=== PATIENT | female | born 1955 | race Caucasian/White ===

== ENCOUNTER 2021-10-07 11:38 | Observation (INO) | payer MEDICARE ==
[2021-10-07 12:10] LABS: #Basophils 0.3 10x3/uL (0.0-0.2); #Eosinphils 0.6 10x3/uL (0.0-0.5); #Monocytes 1.4 10x3/uL (0.0-1.1); #Neutrophils 8.8 10x3/uL (1.5-8.4); %Basophils 1.7 % (0.0-2.0); %Eosinophils 3.8 % (0.0-6.0); %Lymphocytes 30.6 % (18.0-47.0); %Monocytes 8.6 % (0.0-10.0); %Neutrophils 54.6 % (40.0-75.0); Hemoglobin 16.8 g/dL (12.0-15.5); Mean Corpuscular HGB CONC 35.1 g/dL (32.0-36.0); Mean Corpuscular Hemoglobin 31.2 pg (27.0-33.0); Mean Platelet Volume 10.1 fl (7.4-10.4); Platelet Count 415 10x3/uL (150-450); RBC Distribution Width 13.6 % (11.5-14.5); Red Blood Cell (RBC) Count 5.38 10x6/uL (3.90-5.03)
[2021-10-07 12:19] LABS: Chloride 106 mmol/L (98-107); Potassium 4.5 mmol/L (3.5-5.1); Sodium 138 mmol/L (136-145)
[2021-10-07 12:20] LABS: ALT (SGPT) 38 U/L (8-55); AST (SGOT) 36 U/L (5-34); Albumin 4.6 g/dL (3.4-4.8); Alkaline Phosphatase 79 U/L (40-110); Anion Gap 19 mmol/L (10-20); BUN (Urea Nitrogen) 20 mg/dL (9.8-20.1); Bilirubin, Total 0.7 mg/dL (0.2-1.2); Calc. Creatinine Clearance 0 mL/min (70-130); Calcium 9.9 mg/dL (7.8-10.44); Carbon Dioxide 18 mmol/L (23-31); Estimated GFR 43; Globulin 3.9 g/dL (2.4-3.5); Glucose 117 mg/dL (80-115); Protein, Total 8.5 g/dL (5.8-8.1)
[2021-10-07] MEDS ORDERED: Enoxaparin Sodium 60 MG/0.6 ML SYRINGE ONE (13:42)
[2021-10-07 13:49] LABS: SARS-CoV-2 NAA Rapid Test Not Detected (NotDetected)
[2021-10-07] MEDS ORDERED: Acetaminophen 325 MG TAB PO PRN (14:01)
[2021-10-07 15:13] LABS: Troponin I Less than 0.010 ng/mL (< 0.028)
[2021-10-07 15:37] LABS: Bilirubin Neg (Negative); Blood, Urine 25 (Negative); Clarity Slightly Cloudy (Clear); Glucose, Urine (Dipstick) Normal (Negative); Ketone, Urine Negative (Negative); Leukocyte Negative (Negative); Nitrite Negative (Negative); Protein, Urine (Dipstick) 30 mg/dl (Neg-Trace); Specific Gravity, Urine 1.025 (1.002-1.036); Urobilinogen Normal mg/dL (Less than 2)
[2021-10-07 15:56] LABS: Bacteria/HPF 2+ HPF (None Seen); Mucous/LPF 1+ LPF (<2+); WBC/HPF 0-3 HPF (0-3)
[2021-10-07 19:25] LABS: Troponin I Less than 0.010 ng/mL (< 0.028)
[2021-10-07] MEDS ORDERED: traZODone HCl 50 MG TAB PO SCH (22:30)
[2021-10-08 05:04] LABS: Hemoglobin 14.3 g/dL (12.0-15.5); Mean Corpuscular Hemoglobin 31.5 pg (27.0-33.0); Mean Corpuscular Volume 90.1 fl (81.6-98.3); Mean Platelet Volume 10.4 fl (7.4-10.4); RBC Distribution Width 13.8 % (11.5-14.5); Red Blood Cell (RBC) Count 4.54 10x6/uL (3.90-5.03); White Blood Cell (WBC) Count 10.9 10x3/uL (3.5-10.5)
[2021-10-08 05:05] LABS: Anion Gap 13 mmol/L (10-20); BUN (Urea Nitrogen) 20 mg/dL (9.8-20.1); Calc. Creatinine Clearance 65 mL/min (70-130); Calcium 9.1 mg/dL (7.8-10.44); Carbon Dioxide 21 mmol/L (23-31); Chloride 106 mmol/L (98-107); Estimated GFR 56; Glucose 129 mg/dL (80-115); Potassium 3.6 mmol/L (3.5-5.1); Sodium 136 mmol/L (136-145)
[2021-10-08 05:06] LABS: MDiff Complete? YES; Platelet Count 294 10x3/uL (150-450)
[2021-10-08 05:10] LABS: Band 2 % (5-11); Eosinophils 2 % (0-10); Lymphocytes 34 % (21-51); Monocytes 5 % (0-10); Myelocyte 1 % (0-0); Neutrophil 47 % (42-75); Reactive Lymphocytes 9 % (0-10)
[2021-10-08 05:11] LABS: Platelet Morphology Comment Appears Adequate; RBC Morphology Normal
[2021-10-08] MEDS ORDERED: Nitroglycerin 0.4 MG TAB (25 Tab Bottle) SL PRN (11:29)
[2021-10-08] MEDS ORDERED: Pepto Bismol Chew TAB PO PRN (11:29)
[2021-10-08] MEDS: Aspirin 81 mg Enteric Coated Tablet PO SCH ×2 (12:44→13:00)
[2021-10-08] MEDS ORDERED: Ventolin HFA Inhaler 60 PUFF INHALER INH PRN (14:32)
[2021-10-08] MEDS ORDERED: Lorazepam 1 MG TAB PO SCH ×2 (15:45→22:00)
[2021-10-08] MEDS: Metoprolol Tartrate 25 MG TAB PO SCH (20:33)
[2021-10-08] MEDS: Lorazepam 1 MG TAB PO SCH (20:33)
[2021-10-08] MEDS ORDERED: traZODone HCl 50 MG TAB PO SCH (21:00)
[2021-10-08] MEDS ORDERED: Atorvastatin Calcium 20 MG TAB PO SCH (21:00)
[2021-10-09 03:26] LABS: #Basophils 0.1 10x3/uL (0.0-0.2); #Eosinphils 0.6 10x3/uL (0.0-0.5); #Monocytes 0.9 10x3/uL (0.0-1.1); #Neutrophils 5.5 10x3/uL (1.5-8.4); %Basophils 1.1 % (0.0-2.0); %Eosinophils 4.7 % (0.0-6.0); %Lymphocytes 38.1 % (18.0-47.0); %Monocytes 7.9 % (0.0-10.0); %Neutrophils 47.8 % (40.0-75.0); Hemoglobin 14.4 g/dL (12.0-15.5); Mean Corpuscular HGB CONC 34.6 g/dL (32.0-36.0); Mean Corpuscular Hemoglobin 31.4 pg (27.0-33.0); Mean Corpuscular Volume 90.6 fl (81.6-98.3); Platelet Count 293 10x3/uL (150-450); RBC Distribution Width 13.6 % (11.5-14.5); Red Blood Cell (RBC) Count 4.59 10x6/uL (3.90-5.03); White Blood Cell (WBC) Count 11.6 10x3/uL (3.5-10.5)
[2021-10-09 03:48] LABS: Anion Gap 14 mmol/L (10-20); BUN (Urea Nitrogen) 19 mg/dL (9.8-20.1); Calc. Creatinine Clearance 65 mL/min (70-130); Calcium 9.3 mg/dL (7.8-10.44); Carbon Dioxide 24 mmol/L (23-31); Chloride 106 mmol/L (98-107); Estimated GFR 56; Glucose 145 mg/dL (80-115); Potassium 3.7 mmol/L (3.5-5.1); Sodium 140 mmol/L (136-145)
[2021-10-09] MEDS ORDERED: Communication Order-Pharmacy FS SCH (06:00)
[2021-10-09] MEDS: Lorazepam 1 MG TAB PO SCH (06:15)
[2021-10-09] MEDS: Metoprolol Tartrate 25 MG TAB PO SCH (06:15)
[2021-10-09] MEDS ORDERED: Heparin 10,000 UNITS/ 10 ML VIAL ONE (08:02)
[2021-10-09] MEDS ORDERED: Nitroglycerin 50 MG/250 ML BOT 250 ML ONE (08:02)
[2021-10-09] MEDS ORDERED: Adenosine 6 MG/2 ML VIAL ONE (08:02)
[2021-10-09] MEDS ORDERED: Fentanyl 100 MCG/2 ML VIAL ONE (08:03)
[2021-10-09] MEDS ORDERED: Lidocaine 1% 20 ML MDV ONE (08:03)
[2021-10-09] MEDS ORDERED: Midazolam HCl 2 mg/2 ml Vial ONE (08:04)
[2021-10-09] MEDS ORDERED: Aspirin 81 mg Enteric Coated Tablet PO SCH (09:00)
[2021-10-09] MEDS ORDERED: Sodium Chloride 0.9% 200 ML IV PRN (10:08)
[2021-10-09] MEDS ORDERED: Acetaminophen/Codeine 30-300mg Tablet PO PRN ×2 (10:08)
[2021-10-09] MEDS ORDERED: Nitroglycerin 0.4 MG TAB (25 Tab Bottle) SL PRN (10:08)
[2021-10-09] MEDS ORDERED: Iopamidol 300 61% 100 ML VIAL FS ONE (12:00)
[2021-10-09 12:25] VITALS: BP 126/60; TEMP 96.8
== END 2021-10-09 13:18 | disposition home or self-care (01) ==
LOC: CSHERS 11:38 → CSHTELE 13:34 → UNDOADMOB 18:27 → CSHTELE 18:27
PROVIDERS: ADMIT Internal Medicine; ATTEND Internal Medicine
DX: I24.8 Other forms of acute ischemic heart disease (principal); I11.9 Hypertensive heart disease without heart failure; E78.5 Hyperlipidemia, unspecified; E11.9 Type 2 diabetes mellitus without complications; D72.829 Elevated white blood cell count, unspecified; K21.9 Gastro-esophageal reflux disease without esophagitis; E03.9 Hypothyroidism, unspecified; F32.A Depression, unspecified; F41.9 Anxiety disorder, unspecified; Z20.822 Contact with and (suspected) exposure to COVID-19; Z79.82 Long term (current) use of aspirin; Z79.899 Other long term (current) drug therapy; Z87.891 Personal history of nicotine dependence
CPT/HCPCS: 36415; 71045; 80048; 80053; 81003; 81015; 83605; 84484; 85025; 85379; 86850; 86900; 86901; 87040; 87086; 93005; 93306; 93458; 94760; 96360; 96361; 96372; 99152; C1760; C1769; G0378; J0153; J1644; J1650; J2250; J3010; Q9967; U0002